=== PATIENT | male | born 1985 | race Caucasian/White ===

== ENCOUNTER 2017-11-01 11:10 | Emergency (ER) | payer OTHER ==
[~2017-11-01] VITALS: Ht 185.4 cm; Wt 96.9 kg
[2017-11-01 11:28] VITALS: BP 144/76
[2017-11-01] MEDS ORDERED: KEFLEX500 MG PO (16:36)
== END 2017-11-01 13:19 | disposition left against medical advice (07) ==
LOC: EME 11:10
DX: L02.91 Cutaneous abscess, unspecified (principal); Z53.21 Procedure and treatment not carried out due to patient leaving prior to being seen by health care provider

== ENCOUNTER 2017-11-01 14:06 | Emergency (ER) | payer OTHER ==
[~2017-11-01] VITALS: Ht 185.4 cm; Wt 97.1 kg
[2017-11-01 14:11] VITALS: BP 123/63
[2017-11-01] MEDS ORDERED: KEFLEX500 MG PO (16:36)
== END 2017-11-01 16:50 | disposition home or self-care (01) ==
LOC: EME 14:06
DX: L02.01 Cutaneous abscess of face (principal); B19.20 Unspecified viral hepatitis C without hepatic coma; F17.200 Nicotine dependence, unspecified, uncomplicated; Z88.8 Allergy status to other drugs, medicaments and biological substances
CPT/HCPCS: 99281; 99283